=== PATIENT | male | born 1960 | race African-American/Black ===

== ENCOUNTER 2022-06-05 23:44 | Emergency (ER) | payer MEDICARE ==
[~2022-06-05] VITALS: Ht 177.8 cm; Wt 91.0 kg
[2022-06-06] MEDS ORDERED: MORPHINE SULFATE 4 MG/ML CPJ (NOT FOR IM USE) IV STA (00:21)
[2022-06-06] MEDS ORDERED: ONDANSETRON HCL 4MG/2ML INJ IV STA (00:21)
[2022-06-06] MEDS ORDERED: FAMOTIDINE 20MG/2ML VIAL IV STA (00:21)
[2022-06-06] MEDS ORDERED: SODIUM CHLORIDE 0.9% 1,000 ML IV ONE (00:30)
[2022-06-06 02:58] LABS: CLARITY URINE CLEAR (CLEAR); COLOR URINE YELLOW (YELLOW); KETONES URINE NEGATIVE (NEGATIVE); LEUKOCYTE ESTERASE URINE NEGATIVE (NEGATIVE); NITRITE URINE NEGATIVE (NEGATIVE); OCCULT BLOOD URINE NEGATIVE (NEGATIVE); PH URINE 7.5 (4.5-8.0); PROTEIN URINE NEGATIVE (NEGATIVE); SPECIFIC GRAVITY URINE 1.009 (1.005-1.030)
[2022-06-06 03:21] LABS: CHLORIDE 108 mEq/L (98-107)
[2022-06-06 03:22] LABS: BASOPHILS % 0.5 % (0.0-2.0); HEMOGLOBIN. 12.7 g/dL (14.0-18.0); LYMPHOCYTES % 16.1 % (20.0-50.0); MEAN CORPUSCULAR HEMOGLOBIN 31.1 pg (28.0-32.0); MEAN CORPUSCULAR VOLUME 90.4 fL (80.0-94.0); MEAN PLATELET VOLUME 7.7 fl (7.4-10.4); MONOCYTES % 7.7 % (2.0-8.0); NEUTROPHILS % 74.7 % (40.0-76.0); PLATELET 185 x1000/uL (130-400); RED BLOOD CELL COUNT 4.09 mill/uL (4.7-6.1); RED CELL DISTRIBUTION WIDTH 14.5 % (11.6-14.6)
[2022-06-06] MEDS ORDERED: IBUP-2028 MT (04:10)
[2022-06-06 04:30] VITALS: BP 140/88
== END 2022-06-06 04:35 | disposition home or self-care (01) ==
LOC: ER 23:44
DX: K80.20 Calculus of gallbladder without cholecystitis without obstruction (principal); E78.00 Pure hypercholesterolemia, unspecified; I10 Essential (primary) hypertension
CPT/HCPCS: 36415; 76700; 80053; 81003; 83605; 83690; 85025; 93005; 96361; 96374; 96375; 99285; J2270; J2405; J3490; J7030

== ENCOUNTER 2024-08-31 18:21 | Emergency (ER) | payer SELFPAY ==
[~2024-08-31] VITALS: Ht 185.4 cm; Wt 99.0 kg
[~2024-08-31 18:21] MED LIST: IBUP-2028 MT
[2024-08-31 18:25] VITALS: O2SAT 96
[2024-08-31] MEDS ORDERED: MAGNESIUM/ALUMINUM HYDROXIDE/SIMETHICONE 30ML UDC PO STA (18:55)
[2024-08-31] MEDS ORDERED: ONDANSETRON HCL 4MG/2ML INJ IV STA (18:55)
[2024-08-31] MEDS ORDERED: MORPHINE SULFATE 4 MG/ML INJ (FOR IV/IM USE) IV STA (18:55)
[2024-08-31] MEDS ORDERED: PANTOPRAZOLE SODIUM 40 MG/VIAL IV ONE (19:00)
[2024-08-31] MEDS ORDERED: ASPIRIN 325MG EC TABLET PO ONE (19:00)
[2024-08-31 19:03] LABS: CLARITY URINE CLEAR (CLEAR); COLOR URINE YELLOW (YELLOW); GLUCOSE URINE NEGATIVE (NEGATIVE); KETONES URINE NEGATIVE (NEGATIVE); LEUKOCYTE ESTERASE URINE NEGATIVE (NEGATIVE); NITRITE URINE NEGATIVE (NEGATIVE); OCCULT BLOOD URINE NEGATIVE (NEGATIVE); PROTEIN URINE TRACE (NEGATIVE)
[2024-08-31 19:11] LABS: BACTERIA URINE NONE SEEN; RBC URINE 0-2 /hpf (0-2); SQUAMOUS EPITHELIAL CELL URINE RARE /lpf (RARE/1+); WBC URINE 0-2 /hpf (0-2)
[2024-08-31 19:45] LABS: BASOPHILS % 0.4 % (0.0-2.0); EOSINOPHILS % 0.8 % (0.0-5.0); HEMATOCRIT. 42.2 % (42.0-52.0); HEMOGLOBIN. 14.2 g/dL (14.0-18.0); LYMPHOCYTES % 9.4 % (20.0-50.0); MEAN CORPUSCULAR HEMOGLOBIN 32.2 pg (28.0-32.0); MEAN CORPUSCULAR HGB CONC 33.6 g/dL (31.0-37.0); MEAN CORPUSCULAR VOLUME 95.8 fL (80.0-94.0); MEAN PLATELET VOLUME 8.1 fl (7.4-10.4); MONOCYTES % 8.4 % (2.0-8.0); PLATELET 178 x1000/uL (130-400); RED BLOOD CELL COUNT 4.41 mill/uL (4.7-6.1); RED CELL DISTRIBUTION WIDTH 13.7 % (11.6-14.6); WHITE BLOOD COUNT 6.4 x1000/uL (4.5-11.0)
[2024-08-31 19:50] LABS: CHLORIDE 108 mEq/L (98-107); POTASSIUM 4.1 mEq/L (3.5-5.1); SODIUM 140 mEq/L (136-145)
[2024-08-31 19:51] LABS: CALCIUM 9.5 mg/dL (8.7-10.4); CARBON DIOXIDE 19 mEq/L (21-32)
[2024-08-31 19:56] LABS: CREATININE 1.6 mg/dL (0.6-1.3); GLUCOSE 95 mg/dL (70-105); PROTHROMBIN TIME 10.9 sec (9.6-11.0); TROPONIN I HIGH SENSITIVITY 16 ng/L (3.0-53); UREA NITROGEN BLOOD 13 mg/dL (9-23)
[2024-08-31 19:58] LABS: ALANINE AMINOTRANSFERASE 11 IU/L (10-49); ALBUMIN 4.6 g/dL (3.2-4.8); ASPARTATE AMINOTRANSFERASE 21 IU/L (<34); BILIRUBIN DIRECT 0.2 mg/dL (<=3.0); BILIRUBIN TOTAL 0.7 mg/dL (0.1-1.0)
[2024-08-31 20:16] LABS: ETHANOL BLOOD < 10 mg/dL (<10)
[2024-08-31] MEDS: ONDANSETRON HCL 4MG/2ML INJ IV NR (21:50)
[2024-08-31] MEDS: MAGNESIUM/ALUMINUM HYDROXIDE/SIMETHICONE 30ML UDC PO NR (21:50)
[2024-08-31] MEDS: PANTOPRAZOLE SODIUM 40 MG/VIAL IV NR (21:50)
[2024-08-31] MEDS: ASPIRIN 325MG EC TABLET PO NR (21:50)
[2024-08-31] MEDS: MORPHINE SULFATE 4 MG/ML INJ (FOR IV/IM USE) IV NR (21:50)
[2024-09-01 00:40] VITALS: BP 138/92; PULSE 64; RESP 19; TEMP 37.78080; O2SAT 99
== END 2024-09-01 02:16 | disposition home or self-care (01) ==
LOC: ER 18:21
DX: R10.84 Generalized abdominal pain (principal); E78.00 Pure hypercholesterolemia, unspecified; I10 Essential (primary) hypertension; Z88.8 Allergy status to other drugs, medicaments and biological substances; Z87.19 Personal history of other diseases of the digestive system
CPT/HCPCS: 80076; 80048; 81003; 80320; 83690; 85025; 85610; 84484; 36415; 71045; 74176; 96374; 96375; 99285; J2405; J2470; J2270; Z7610; G0480

== ENCOUNTER 2024-10-01 22:05 | Emergency (ER) | payer MEDICARE ==
[~2024-10-01] VITALS: Ht 182.9 cm; Wt 91.0 kg
[~2024-10-01 22:05] MED LIST changes: +AMLO5TAB88 PO; +ASPI-1497 MT; -IBUP-2028 MT; +LIP40 PO
[2024-10-01 22:08] VITALS: TEMP 98.5; O2SAT 96
[2024-10-01] MEDS: ACETAMINOPHEN 1000MG/100ML 100 ML IV ONE (22:30)
[2024-10-01] MEDS: SODIUM CHLORIDE 0.9% 500 ML IV ONE (23:27)
[2024-10-01] MEDS: ONDANSETRON HCL 4MG/2ML INJ IV ONE (23:28)
[2024-10-01] MEDS: MAGNESIUM/ALUMINUM HYDROXIDE/SIMETHICONE 30ML UDC PO ONE (23:28)
[2024-10-01 23:34] LABS: BASOPHILS % 0.6 % (0.0-2.0); EOSINOPHILS % 2.6 % (0.0-5.0); HEMATOCRIT. 42.6 % (42.0-52.0); HEMOGLOBIN. 14.4 g/dL (14.0-18.0); LYMPHOCYTES % 27.8 % (20.0-50.0); MEAN CORPUSCULAR HEMOGLOBIN 31.4 pg (28.0-32.0); MEAN CORPUSCULAR HGB CONC 33.8 g/dL (31.0-37.0); MEAN CORPUSCULAR VOLUME 92.7 fL (80.0-94.0); MEAN PLATELET VOLUME 7.9 fl (7.4-10.4); MONOCYTES % 7.8 % (2.0-8.0); NEUTROPHILS % 61.2 % (40.0-76.0); PLATELET 247 x1000/uL (130-400); RED CELL DISTRIBUTION WIDTH 14.3 % (11.6-14.6); WHITE BLOOD COUNT 7.1 x1000/uL (4.5-11.0)
[2024-10-01 23:39] LABS: CLARITY URINE CLEAR (CLEAR); COLOR URINE YELLOW (YELLOW); GLUCOSE URINE NEGATIVE (NEGATIVE); KETONES URINE NEGATIVE (NEGATIVE); LEUKOCYTE ESTERASE URINE NEGATIVE (NEGATIVE); NITRITE URINE NEGATIVE (NEGATIVE); OCCULT BLOOD URINE NEGATIVE (NEGATIVE); PH URINE 8.5 (4.5-8.0); PROTEIN URINE NEGATIVE (NEGATIVE); SPECIFIC GRAVITY URINE 1.008 (1.005-1.030); UROBILINOGEN URINE 0.2 E.U./dL (0.2-1.0)
[2024-10-01 23:47] LABS: *AMPHETAMINES SCREEN URINE NEGATIVE (NEGATIVE); *BARBITURATES SCREEN URINE NEGATIVE (NEGATIVE); *BENZODIAZEPINES SCREEN URINE NEGATIVE (NEGATIVE); *COCAINE SCREEN URINE PRESUMPTIVE POSITIVE (NEGATIVE); CANNABINOID URINE SCREEN NEGATIVE (NEGATIVE); ECSTASY MDMA SCREEN URINE NEGATIVE (NEGATIVE); METHADONE URINE SCREEN NEGATIVE (NEGATIVE); OPIATES URINE SCREEN NEGATIVE (NEGATIVE); PHENCYCLIDINE URINE SCREEN NEGATIVE (NEGATIVE)
[2024-10-02 00:54] LABS: PARTIAL THROMBOPLASTIN TIME 27.9 sec (23.4-31.0); PROTHROMBIN TIME 11.2 sec (9.6-11.0)
[2024-10-02 00:59] LABS: CHLORIDE 109 mEq/L (98-107); SODIUM 141 mEq/L (136-145)
[2024-10-02 01:00] LABS: CALCIUM 9.1 mg/dL (8.7-10.4); CARBON DIOXIDE 23 mEq/L (21-32)
[2024-10-02 01:05] LABS: CREATININE 1.5 mg/dL (0.6-1.3); GLUCOSE 94 mg/dL (70-105); UREA NITROGEN BLOOD 13 mg/dL (9-23)
[2024-10-02 01:06] LABS: TROPONIN I HIGH SENSITIVITY 16 ng/L (3.0-53)
[2024-10-02 01:07] LABS: ALANINE AMINOTRANSFERASE 9 IU/L (10-49); ALBUMIN 3.9 g/dL (3.2-4.8); ASPARTATE AMINOTRANSFERASE 16 IU/L (<34); BILIRUBIN DIRECT 0.1 mg/dL (<=3.0); BILIRUBIN TOTAL 0.4 mg/dL (0.1-1.0)
[2024-10-02 01:13] LABS: ETHANOL BLOOD < 10 mg/dL (<10)
[2024-10-02] MEDS ORDERED: ACET-2708 MT (01:20)
[2024-10-02] MEDS ORDERED: ONDA4TAB50 MT (01:20)
[2024-10-02] MEDS ORDERED: MAG-55 MT (01:20)
[2024-10-02 01:59] VITALS: BP 167/94; PULSE 82; RESP 19; O2SAT 97
[2024-10-02] MEDS ORDERED: IOHEXOL-300 100 ML BOTTLE ONE (06:05)
== END 2024-10-02 02:14 | disposition home or self-care (01) ==
LOC: ER 22:05
DX: R10.13 Epigastric pain (principal); F14.10 Cocaine abuse, uncomplicated; I10 Essential (primary) hypertension; E11.9 Type 2 diabetes mellitus without complications; E78.00 Pure hypercholesterolemia, unspecified; Z88.8 Allergy status to other drugs, medicaments and biological substances; Z79.899 Other long term (current) drug therapy; Z88.0 Allergy status to penicillin; Z79.82 Long term (current) use of aspirin
CPT/HCPCS: 80305; 81003; 83880; 85025; 36415 ×2; 71045; 74177; 93005; 96365; 96366; 96375; 99284; 80076; 80048; 80320; 83690; 85610; 85730; 84484; J2405; J7040; Q9967; 99285; G0480; J0131